=== PATIENT | female | born 1985 | race Caucasian/White ===

== ENCOUNTER 2017-02-07 05:01 | Emergency (ER) | payer MEDICAID ==
[~2017-02-07] VITALS: Wt 73.5 kg
[~2017-02-07 05:01] MED LIST: ACET500C5 PO; CEPH-443 PO
[2017-02-07] MEDS ORDERED: TRAM50TA2 PO (05:52)
[2017-02-07] MEDS ORDERED: NAPH15DR22 RIGHT EYE (05:52)
[2017-02-07] MEDS ORDERED: IBUP-1542 PO (05:52)
[2017-02-07] MEDS ORDERED: POLY10DR19 RIGHT EYE (05:52)
--- NOTE | 2017-02-07 05:58 | ERD ---
ER Documentation Chief Complaint Date/Time DATE: 02/07/17 TIME: 05:54 Chief Complaint Right eye redness and right leg pain HPI 31-year-old female presents here in emergency department for complaints of itching, red eye redness, purulent discharge and started this morning. Patient denies any vision changes. Patient denies any foreign body sensation in the eye. Patient denies any trauma in the eye. Patient also is complaining of right ankle pain for one month now, denies any trauma on affected area, described the pain as 4/10 scale, intermittent, worse upon movement. Patient denies any numbness or tingling. Patient denies any redness or swelling. Patient denies fever or chills. Patient did not take any medications over symptoms ROS All systems reviewed and are negative except as per history of present illness. Medications Home Meds Active Scripts Tramadol HCl (Tramadol HCl) 50 Mg Tablet, 50 MG PO Q6 Y for SEVERE PAIN LEVEL 7- 10, #20 TAB Prov:SEEMA COLON NP 02/07/17 Ibuprofen* (Motrin*) 600 Mg Tab, 600 MG PO Q6H Y for PAIN AND OR ELEVATED TEMP, #30 TAB Prov:SEEMA COLON NP 02/07/17 Naphazoline-Pheniramine* (Visine-A*) 15 Ml Drops, 2 DROP RIGHT EYE Q4H Y for RED EYES, #1 BOT Prov:SEEMA COLON NP 02/07/17 Polymyxin B Sulfate-TMP* (Polymyxin B-TMP Eye Drops*) 10 Ml Drops, 1 DROP RIGHT EYE QID for 7 Days, EA Prov:SEEMA COLON NP 02/07/17 Acetaminophen* (Tylophen*) 500 Mg Capsule, 1 CAP PO Q6H Y for PAIN AND OR ELEVATED TEMP, #20 CAP Prov:ASHLEY GILBERT 03/24/15 Cephalexin* (Keflex*) 500 Mg Capsule, 500 MG PO BID DIURETICS for 10 Days, CAP Prov:ASHLEY GILBERT 03/24/15 Allergies Allergies: Coded Allergies: No Known Allergy (Unverified , 03/24/15) PMhx/Soc History of Surgery: Yes () Anesthesia Reaction: No Hx Neurological Disorder: No Hx Respiratory Disorders: No Hx Cardiac Disorders: No Hx Psychiatric Problems: No Hx Miscellaneous Medical Probl: No Hx Alcohol Use: No Hx Substance Use: No Hx Tobacco Use: No Smoking Status: Never smoker FmHx Family History: No coronary disease, No diabetes, No other Physical Exam Vitals Vital Signs Date Time Temp Pulse Resp B/P Pulse Ox O2 Delivery O2 Flow Rate FiO2 02/07/17 05:10 99.4 81 20 139/81 98 Physical Exam GENERAL: The patient is well developed and appropriate for usual state of health, in no apparent distress. HEENT: Atraumatic. Bilateral eyes are PERRL EOM intact. Patient's right eye conjunctiva noted to have chemosis, erythema, with purulent discharge. Patient' s left eye is normal.. Ears: Normal tympanic membrane, no erythema or bulging. No ear canal swelling. No ear discharge. Nose: normal nasal turbinates, no erythema or swelling. Normal nasal discharge. Throat: oropharynx clear. No tonsillar swelling or tonsillar exudates. No lymphadenopathy. CHEST: Clear to auscultation bilaterally. There are no rales, wheezes or rhonchi. HEART: Regular rate and rhythm. No murmurs, clicks, rubs or gallops. No S3 or S4. ABDOMEN: Soft, nontender and nondistended. Good bowel sounds. No rebound or guarding. No gross peritonitis. No gross organomegaly or masses. No Teague sign or McBurney point tenderness. BACK: No midline or flank tenderness. EXTREMITIES: Patient is able to do full range of motion of the right ankle without any restriction, no swelling noted, mild tenderness on palpation on the lateral malleolus. No deformity noted. Able to ambulate on it. Equal pulses bilaterally. Full range of motion of other joints of the body. Grossly neurovascularly intact. NEURO: Alert and oriented. Cranial nerves 2-12 intact. Motor strength in all 4 extremities with 5/5 strength. Sensation grossly intact. Normal speech and gait. SKIN: There is no apparent rash or petechia. The skin is warm and dry. HEMATOLOGIC AND LYMPHATIC: There is no evidence of excessive bruising or lymphedema. No gross cervical, axillary, or inguinal lymphadenopathy. Results 24 hrs Current Medications Medications (Trade) Dose Ordered Sig/Carol Route PRN Reason Start Time Stop Time Status Last Admin Dose Admin Ibuprofen (Motrin) 600 mg ONCE ONCE PO 02/07/17 06:00 02/07/17 06:01 Procedures/[facility] Medical Decision Making: Patient's pain is most likely consistent with a ankle sprain. There is no suspicion for neurovascular compromise. Patient has intact sensation and circulation of the affected extremity. There is low suspicion for septic arthritis. Patient does not have any fever. Radiology exam is not indicated at this time since patient did not have any trauma on affected area. No redness or swelling, no deformity noted. Right eye redness noted to be possibly from acute bacterial conjunctivitis, patient has chemosis of the right eye most active from irritation and rubbing the right eye. Patient denies any foreign body sensation in the eye. Patient denies any vision changes. Patient does not have any symptoms of any acute emergent eye conditions at this time. Disposition: Home. Patient is given prescription for ibuprofen for mild to moderate pain, [place] for severe pain, Polytrim eyedrops, Naphcon ophthalmic solution. Patient was advised to elevate the affected area and apply ice on affected area. Advised to avoid rubbing right eye. Patient was advised that if symptoms are worse, numbness, tingling, high fever, unable to move joint, worsening symptoms, to return to emergency department immediately. Otherwise, patient is advised to follow up with the primary care doctor in 5-7 days for reevaluation of symptoms. Departure Diagnosis: Primary Impression: Bacterial conjunctivitis of right eye Additional Impressions: Chemosis of right conjunctiva Ankle pain Laterality: right Chronicity: acute Qualified Code: M25.571 - Acute right ankle pain Condition: Stable Patient Instructions: Conjunctivitis Caused by Infection, Sprain, Ankle, No X- Ray Referrals: [facility] () Usted se esparza hecho un examen mdico de control que le indica que no est en pj condicin que requiera tratamiento urgente en el Departamento de Emergencia. Un estudio ms profundo y el tratamiento de smith condicin pueden esperar sin ningn riesgo hasta que usted sea atendida/o en el consultorio de smith mdico o pj cl shayan. Es responsabilidad suya arreglar pj ximena para el seguimiento del bertha. MANEJO DE CONDICIONES NO URGENTES EN EL FUTURO 1) Si usted tiene un mdico de atencin primaria: Usted debera llamar a smith mdico de atencin primaria antes de venir al departamento de emergencia. Despus de las horas de consultorio, smith doctor o smith asociado/a est disponible por telfono. El mdico o enfermero de lissy en el servicio telefnico puede asesorarle por evonne medio para atender el problema, o bertha contrario se puede programar pj ximena. 2) Si usted no tiene un mdico de atencin primaria: Llame al mdico o clnica de referencia que aparece abajo jose eduardo las horas de consultorio para hacer pj xmiena para que le vean. CLINICAS: [facility] [phone] [facility] [phone] [facility] [phone] [address] [facility]. [facility] [phone] [address] [facility]. [facility] [phone] [address] [facility] [phone] [address] [facility] [facility] () Marge se esparza hecho un examen mdico de control que le indica que no est en pj condicin que requiera tratamiento urgente en el Departamento de Emergencia. Un estudio ms profundo y el tratamiento de smith condicin pueden esperar sin ningn riesgo hasta que usted sea atendida/o en el consultorio de smith mdico o pj cl shayan. Es responsabilidad suya arreglar pj ximena para el seguimiento del bertha. MANEJO DE CONDICIONES NO URGENTES EN EL FUTURO 1) Si usted tiene un mdico de atencin primaria: Usted debera llamar a smith mdico de atencin primaria antes de venir al departamento de emergencia. Despus de las horas de consultorio, smith doctor o smith asociado/a est disponible por telfono. El mdico o enfermero de lissy en el servicio telefnico puede asesorarle por evonne medio para atender el problema, o bertha contrario se puede programar pj ximena. 2) Si usted no tiene un mdico de atencin primaria: Llame al mdico o condado institucions de referencia que aparece abajo jose eduardo las horas de consultorio para hacer pj ximena para que le vean. SI USTED NO PUEDE PAGAR PARA MAXIMO UN MEDICO puede ir a: [facility] [address] [place] [address] [facility] [address] [place], [place] [id number] [place] [address] [address] [place] [address] [facility] [address] [place], [place] [id number] CUISIA,SEEMA Saldana NP Feb 07, 2017 05:57
[2017-02-07] MEDS ORDERED: IBUPROFEN 600 MG TAB PO ONE (06:00)
== END 2017-02-07 06:03 | disposition home or self-care (01) ==
LOC: FTE 05:01
DX: H10.022 Other mucopurulent conjunctivitis, left eye (principal); H11.421 Conjunctival edema, right eye; M25.571 Pain in right ankle and joints of right foot
CPT/HCPCS: Z7502; Z7610; 99284

== ENCOUNTER 2018-06-18 21:17 | Emergency (ER) | END 2018-06-18 23:11 | disposition home or self-care (01) ==